=== PATIENT | female | born 1960 | race Caucasian/White ===

== ENCOUNTER → 2020-11-01 15:15 | Outpatient (CLI) | payer BC, SELFPAY ==
--- NOTE | ~2020-11-01 | MM_ITS ---
EXAMINATION: MM screening [facility] w adrian HISTORY: Screening TECHNIQUE: Craniocaudal and mediolateral oblique 3-D tomosynthesis images were obtained and synthetic 2-D images were generated. CAD analysis was submitted and interpreted. COMPARISON: Comparison to multiple prior studies sequentially, with oldest reviewed study dated 04/04. BREAST PARENCHYMAL COMPOSITION: There are scattered areas of fibroglandular density. FINDINGS: There is no evidence of suspicious mass, calcification, or architectural distortion to sugg est malignancy in either breast. There has been no suspicious interval change. IMPRESSION: 1. No mammographic evidence of malignancy. 2. Recommend routine screening mammography in one year. BI-RADS Category 1: Negative Reviewed, dictated and finalized at location A.
== END ==
PROVIDERS: PCP Family Medicine Sports Medicine; Visit Provider Family Medicine Sports Medicine
DX: Z12.31 Encounter for screening mammogram for malignant neoplasm of breast (principal)
CPT/HCPCS: 77063; 77067

== ENCOUNTER → 2021-11-13 12:21 | Outpatient (CLI) | payer BC, SELFPAY ==
--- NOTE | ~2021-11-13 | MM_ITS ---
EXAMINATION: MM screening [facility] BI w adrian HISTORY: Screening mammogram TECHNIQUE: Craniocaudal and mediolateral oblique 3-D tomosynthesis images were obtained and synthetic 2-D images were generated. CAD analysis was submitted and interpreted. COMPARISON: 11/01/2020, 04/24/2019, 04/16/2017 BREAST PARENCHYMAL COMPOSITION: There are scattered areas of fibroglandular density. FINDINGS: There is no suspicious mass, calcification, or architectural distortion to suggest malignan cy in either breast. There has been no suspicious interval change. IMPRESSION: 1. No mammographic evidence of malignancy. 2. Recommend routine screening mammography in one year. BI-RADS Category 1: Negative Reviewed, dictated and finalized at location A.
== END ==
PROVIDERS: PCP Family Medicine Sports Medicine; Visit Provider Obstetrics & Gynecology
DX: Z12.31 Encounter for screening mammogram for malignant neoplasm of breast (principal)
CPT/HCPCS: 77063; 77067

== ENCOUNTER 2023-02-18 08:36 | Emergency (ER) | payer BC, SELFPAY ==
--- NOTE | ~2023-02-18 | XR_ITS ---
XR chest 2V DATE: 02/18/2023 09:24 INDICATION: Chest pressure TECHNIQUE: PA and lateral views COMPARISON: 11/27/2015 PA and lateral chest FINDINGS: Normal heart size. No hilar or mediastinal enlargement. No pulmonary infiltrate or consolidation, pleural effusion or pulmonary vascular congestion or pneumo thorax. Surgical clips, right upper quadrant, likely due to cholecystectomy. IMPRESSION: No active cardiopulmonary disease Reviewed, dictated and finalized at location L.
--- NOTE | 2023-02-18 08:43 | ECG_ITS ---
Measurements Intervals [place] Rate: 53 P: 24 NE: 136 QRS: 7 QRSD: 93 T: 20 QT: 407 QTc: 383 Interpretive Statements SINUS BRADYCARDIA LOW QRS VOLTAGE IN PRECORDIAL LEADS [QRS DEFLECTION < 1.0 mV IN CHEST LEADS] NO PREVIOUS ECG AVAILABLE FOR COMPARISON Electronically Signed On 02-18-2023 15:01:22 CDT by Madiha Bowers M.D.
--- NOTE | 2023-02-18 08:45 | ED.CHESTPAIN ---
HPI - Chest Pain General Chief Complaint: Chest Pain Stated Complaint: chest pain Time Seen by Provider: 02/18/23 08:40 History of Present Illness HPI narrative: Patient is a 62-year-old female who presents ER with chest pain and shoulder pain. It is left shoulder near the scapula. It then radiated to her central chest. She is unsure if that was due to anxiety. Symptoms have improved. They are worsened by moving her arm. No diaphoresis or dyspnea. No pain with deep breath. No lower extremity swelling or cramping. Patient has no history of heart disease. She does report that she did some weight lifting last night including [place] squats, rows, and other activities. Related Data Allergies Allergy/AdvReac Type Severity Reaction Status Date / Time No Known Allergies Allergy Verified 02/04/12 14:44 Review of Systems Review of Systems: All systems reviewed & are unremarkable except as noted in HPI and below Constitutional: Constitutional: Denies chills, Denies fatigue and Denies fever(s) ENT: Denies nasal congestion and Denies sore throat Cardiovascular: Cardiovascular: Reports chest pain, Denies rapid heart rate and Reports radiating jaw, neck or arm pain Respiratory: Respiratory: Denies cough and Denies dyspnea Gastrointestinal: Gastrointestinal: Denies abdominal pain, Denies diarrhea, Denies nausea and Denies vomiting Musculoskeletal: Musculoskeletal: Reports back pain, Denies arthralgias and Denies joint swelling PMFSH Past Medical History Medical History (Updated 02/18/23 @ 12:48 by Robbie Witt MD) Hyperthyroidism Surgical History Surgical History (Updated 02/18/23 @ 12:46 by Robbie Witt MD) No pertinent past surgical history Family History Family History (Updated 03/19/18 @ 09:26 by DOCTOR UNKNOWN) Father Diabetes mellitus Family history of malignant neoplasm Mother Family history of malignant neoplasm Social History Social History Smoking status: Never smoker Alcohol intake: current Exam Narrative: GENERAL: Well-appearing, well-nourished, and in no acute distress. HEAD: Normocephalic, atraumatic. EYES: PERRL and EOMI. ENT: Mucous membranes moist. CHEST: Clear to auscultation. No respiratory distress. HEART: Regular rate and rhythm. Normal peripheral pulses. Back: No reproducible midline or paraspinal muscular tenderness of the T/L-spine. ABDOMEN: Soft, nontender, nondistended. EXTREMITIES: Normal range of motion. No edema. SKIN: Warm, dry, no rash. NEURO: Alert and oriented x3. PSYCH: Normal mood and affect. Course Course Emergency Course: Patient feels improved after Toradol. Lab work unremarkable including troponin negative x2. EKG nonischemic. Patient felt appropriate for outpatient work-up and discharge. Vital Signs Vital signs: Vital Signs Temperature 98.2 F 02/18/23 08:48 Pulse Rate 61 02/18/23 08:48 Respiratory Rate 14 02/18/23 08:48 Blood Pressure 121/89 02/18/23 08:48 Pulse Oximetry 100 02/18/23 08:48 Temperature 98.2 F 02/18/23 08:48 Pulse Rate 56 L 02/18/23 09:10 Respiratory Rate 13 02/18/23 09:01 Blood Pressure 117/87 02/18/23 09:01 Pulse Oximetry 100 02/18/23 09:01 Oxygen Delivery Room Air 02/18/23 09:09 MDM - Chest Pain Lab Data 02/18/23 08:46 02/18/23 08:46 Labs: Lab Results 02/18/23 02/18/23 Range/Units 08:46 11:54 WBC 4.8 (4.5-10.0) K/mm3 RBC 4.55 (4.2-5.4) M/mm3 Hgb 13.7 (12.0-15.0) g/dL Hct 42.4 (37.0-47.0) % MCV 93.2 (80-100) fl MCH 30.1 (26-34) pg MCHC 32.3 (32-36) g/dl RDW 11.7 (11.5-14.5) % Plt Count 242 (150-375) k/mm3 MPV 9.7 (7.4-10.4) fl Immature Gran % (Auto) 0.2 (0-0.5) % Neut % (Auto) 52.6 (45.5-73.1) % Lymph % (Auto) 38.7 (18.3-44.2) % [place] % (Auto) 5.4 (2.6-8.5) % Eos % (Auto) 2.3 (0-4.4) % Baso % (Auto) 0.8 (0.2-1.2) % Lymph # (Auto) 1.86 (0.9-3
[2023-02-18] MEDS: ASPIRIN 81 MG CHEWABLE TABLET 324 MG PO (08:47)
[2023-02-18 08:48] VITALS: BP 121/89; PULSE 58; PULSE 61; RESP 14; RESP 16; TEMP 36.8; O2SAT 100
[2023-02-18 08:52] LABS: Basophils Percent Auto 0.8 % (0.2-1.2); Eosinophils Absolute Auto 0.1 K/mm3 (0-0.3); Eosinophils Percent Auto 2.3 % (0-4.4); Hematocrit 42.4 % (37.0-47.0); Hemoglobin 13.7 g/dL (12.0-15.0); Immature Granulocyte Absolute 0.01 K/mm3 (0.00-0.031); Immature Granulocyte Percent A 0.2 % (0-0.5); Lymphocytes Absolute Auto 1.86 K/mm3 (0.9-3.2); Lymphocytes Percent Auto 38.7 % (18.3-44.2); Mean Corpuscular HGB Conc 32.3 g/dl (32-36); Mean Corpuscular Hemoglobin 30.1 pg (26-34); Mean Corpuscular Volume 93.2 fl (80-100); Mean Platelet Volume 9.7 fl (7.4-10.4); Monocytes Absolute Auto 0.3 K/mm3 (0.1-0.6); Monocytes Percent Auto 5.4 % (2.6-8.5); Neutrophils Absolute Auto 2.5 K/mm3 (1.3-6.7); Neutrophils Percent Auto 52.6 % (45.5-73.1); Platelet Count Result 242 k/mm3 (150-375); Red Blood Count 4.55 M/mm3 (4.2-5.4); Red Cell Distribution Width 11.7 % (11.5-14.5); White Blood Count 4.8 K/mm3 (4.5-10.0)
[2023-02-18 09:01] VITALS: BP 117/87; PULSE 62; RESP 13; O2SAT 100
[2023-02-18 09:01] LABS: Alanine Aminotransferase 15 U/L (6-35); Albumin Level 4.6 g/dL (3.5-5.1); Alkaline Phosphatase 114 U/L (38-126); Anion Gap 8 mmol/L (8-16); Aspartate Amino Transferase 25 U/L (14-36); Bilirubin,Total 0.6 mg/dL (0.2-1.3); Blood Urea Nitrogen 18 mg/dL (7-17); Calcium 9.2 mg/dL (8.4-10.2); Carbon Dioxide 29 mmol/L (22-30); Chloride 102 mmol/L (98-107); Estimated Glomerular Filt Rate > 60; Glucose 108 mg/dL (65-110); Potassium 3.7 mmol/L (3.4-5.0); Sodium 139 mmol/L (137-145)
[2023-02-18 09:10] VITALS: PULSE 56
[2023-02-18 09:12] LABS: Troponin I < 0.012 ng/mL (0.000-0.034)
[2023-02-18] MEDS: KETOROLAC 15 MG/ML VIAL (*BKC) IV PUSH (11:05)
[2023-02-18 12:22] LABS: Troponin I < 0.012 ng/mL (0.000-0.034)
[2023-02-18 12:54] VITALS: BP 136/88; PULSE 60; RESP 14; O2SAT 98
== END 2023-02-18 12:58 | disposition home or self-care (01) ==
PROVIDERS: Emergency Provider Emergency Medicine; PCP Family Medicine Sports Medicine
DX: R07.89 Other chest pain (principal); S29.012A Strain of muscle and tendon of back wall of thorax, initial encounter; E05.90 Thyrotoxicosis, unspecified without thyrotoxic crisis or storm; R00.1 Bradycardia, unspecified; X50.3XXA Overexertion from repetitive movements, initial encounter; X50.0XXA Overexertion from strenuous movement or load, initial encounter; Y93.B3 Activity, free weights; Y93.B9 Activity, other involving muscle strengthening exercises
CPT/HCPCS: 36415; 71046; 80053; 84484; 85025; 93005; 96374; 99284; A9270; J1885

== ENCOUNTER → 2023-03-20 12:23 | Outpatient (CLI) | payer BC, SELFPAY ==
--- NOTE | ~2023-03-20 | MM_ITS ---
EXAMINATION: MM screening [facility] BI w adrian HISTORY: Screening mammogram TECHNIQUE: Craniocaudal and mediolateral oblique 3-D tomosynthesis images were obtained and synthetic 2-D images were generated. CAD analysis was submitted and interpreted. COMPARISON: 11/13/2021, 11/01/2020, 04/24/2018 BREAST PARENCHYMAL COMPOSITION: There are scattered areas of fibroglandular density. FINDINGS: No suspicious mass, calcification, or architectural distortion are identified in either graciela ast to suggest malignancy. There has been no suspicious interval change. IMPRESSION: 1. No mammographic evidence of malignancy. 2. Recommend routine screening mammography in one year. BI-RADS Category 1: Negative Reviewed, dictated and finalized at location A. LITIES MAINTENANCE TECHNICIAN
== END ==
PROVIDERS: PCP Obstetrics & Gynecology; Visit Provider Obstetrics & Gynecology
DX: Z12.31 Encounter for screening mammogram for malignant neoplasm of breast (principal)
CPT/HCPCS: 77063; 77067

== ENCOUNTER 2023-08-11 13:19 | Outpatient (CLI) | payer BC, SELFPAY ==
--- NOTE | ~2023-08-11 | US_ITS ---
EXAMINATION: US thyroid DATE: 08/11/2023 13:38 INDICATION: Thyroid calcification. TECHNIQUE: Multiple ultrasound images of the thyroid were obtained. COMPARISON: None currently available. FINDINGS: The right thyroid lobe measures 5.4 x 2.9 x 2.5 cm. The left thyroid lobe measures 5.5 x 2.0 x 1.8 c m. In the right thyroid lobe, there is an 18 mm mixed cystic and solid, hypoechoic, wider than tall nodule with ill-defined margin without echogenic foci (TI-RADS TR3). In the right thyroid lobe, there is a 17 mm almost entirely cystic nodule (TR1). In the left thyroid lobe, there is a 16 mm mixed cys tic and solid, hypoechoic, wider than tall nodule with smooth margin without echogenic foci (TR3). Th ere are multiple subcentimeter nodules in the thyroid. In the thyroid isthmus, there is an 11 mm blaise d, hypoechoic, wider than tall nodule with smooth margin without echogenic foci (TR4). IMPRESSION: 1. Multinodular goiter. Consider thyroid ultrasound in one year. Reviewed, dictated and finalized at location A.
== END 2023-08-11 13:20 ==
LOC: MICIMG 13:19
PROVIDERS: PCP Chiropractor; Visit Provider Chiropractor
DX: E04.2 Nontoxic multinodular goiter (principal); E07.89 Other specified disorders of thyroid
CPT/HCPCS: 76536

== ENCOUNTER 2024-05-26 14:31 | Outpatient (CLI) | payer BC, SELFPAY ==
--- NOTE | ~2024-05-26 | MM_ITS ---
EXAMINATION: MM screening [facility] w adrian HISTORY: Screening TECHNIQUE: Craniocaudal and mediolateral oblique 3-D tomosynthesis images were obtained and synthetic 2-D images were generated. CAD analysis was submitted and interpreted. COMPARISON: Comparison to multiple prior studies sequentially, with oldest reviewed study dated 04/04. BREAST PARENCHYMAL COMPOSITION: Not dense: There are scattered areas of fibroglandular density. FINDINGS: There is no evidence of suspicious mass, calcification, or architectural distortion to sugg est malignancy in either breast. There has been no suspicious interval change. IMPRESSION: 1. No mammographic evidence of malignancy. 2. Recommend routine screening mammography in one year. BI-RADS Category 1: Negative Reviewed, dictated and finalized at location A. RMATION TECHNOLOGY SECURITY MANAGER
== END 2024-05-26 14:32 | disposition home or self-care (01) ==
LOC: MICIMG 14:32
PROVIDERS: PCP Chiropractor; Visit Provider Obstetrics & Gynecology
DX: Z12.31 Encounter for screening mammogram for malignant neoplasm of breast (principal)
CPT/HCPCS: 77063; 77067

== ENCOUNTER 2025-04-18 12:29 | Outpatient (CLI) | payer BC, SELFPAY ==
--- NOTE | ~2025-04-18 | CT_ITS ---
EXAMINATION: CT abdomen pelvis w con DATE: 04/18/2025 13:05 INDICATION: Hernia TECHNIQUE: Computed tomography (CT) of the abdomen and pelvis was performed with 100 mL Omnipaque-350 intravenous contrast. Automated exposure control and iterative reconstruction technique were employed. The dose-length product was 811.00 mGy-cm. COMPARISON: Head CT dated 11/04/2006 FINDINGS: Lung bases are clear. Heart size is normal. No pericardial or pleural effusion. Cholecystectomy clips the gallbladder fossa. Liver, spleen, pancreas, bilateral adrenal glands and kidneys are normal. Bowels including the appendix are normal. Multiple calcified uterine fibroids. 1.8 cm right adnexal cyst. Bladder is normal. No free intraperitoneal gas or fluid. Small fat-containing right inguinal hernia. There is an additional small fat-containing midline supraumbilical ventral hernia. No pathologically enlarged abdominal or pelvic lymphadenopathy. Moderate lumbar spondylosis with 7 mm anterolisthesis L5 on S1. IMPRESSION: 1. Small fat-containing supraumbilical and right inguinal hernias. 2. Multiple calcified uterine fibroids. Reviewed, dictated and finalized at location A. VIOR INTERVENTIONIST
[2025-04-18 12:56] LABS: Estimated Glomerular Filt Rate > 60
== END 2025-04-18 12:30 | disposition home or self-care (01) ==
LOC: MICIMG 12:31
PROVIDERS: PCP Family Medicine; Visit Provider Obstetrics & Gynecology
DX: K42.9 Umbilical hernia without obstruction or gangrene (principal); K40.90 Unilateral inguinal hernia, without obstruction or gangrene, not specified as recurrent; D25.9 Leiomyoma of uterus, unspecified
CPT/HCPCS: 74177; Q9967